=== PATIENT | male | born 1975 | race Caucasian/White ===

== ENCOUNTER 2024-10-22 22:40 | Observation (INO) | payer OTHER, SELFPAY ==
[2024-10-22] VITALS (19 sets, daily range): BP systolic 170–233; BP diastolic 93–193
[2024-10-22 16:20] LABS: % Basophils 0.9 % (0-2); % Eosinophils 8.9 % (0-6); % Immature Granulocytes 0.4 % (0-0.5); % Lymphocytes 32.1 % (20.5-51.1); % Monocytes 8.3 % (1.7-9.3); % Neutrophils 49.4 % (42.2-75.2); Absolute Basophils 0.1 10^3/uL (0-0.2); Absolute Eosinophils 0.6 10^3/uL (0-0.7); Absolute Lymphocytes 2.2 10^3/uL (1.2-3.4); Absolute Monocytes 0.6 10^3/uL (0.1-0.6); Absolute Neutrophils 3.3 10^3/uL (1.4-6.5); Hematocrit 44.7 % (39.0-52.0); Hemoglobin 15.8 g/dL (13.0-18.0); Mean Corp Hgb Conc. 35.3 g/dL (33.0-37.0); Mean Corpuscular Hgb 31.9 pg (27.0-31.0); Mean Corpuscular Volume 90.3 fL (80.0-94.0); Mean Platelet Volume 9.7 fL (7.4-10.4); Nucleated Red Blood Cells % 0 % (-); Platelet Count 309 10^3/uL (130-400); Red Blood Cell Count 4.95 10^6/uL (4.70-6.10); Red Cell Dist. Width 12.6 % (11.5-14.5); White Blood Cell Count 6.8 10^3/uL (4.8-10.8)
[2024-10-22 16:34] LABS: ALT (SGPT) 88 U/L (0-50); AST (SGOT) 54 U/L (17-59); Albumin 4.4 g/dl (3.5-5.0); Alkaline Phosphatase 50 U/L (38-126); Blood Urea Nitrogen 17 mg/dl (9-20); Calcium 9.9 mg/dl (8.4-10.2); Carbon Dioxide 23 mmol/L (22-30); Chloride 111 mmol/L (98-107); Glucose 123 mg/dl (70-99); Potassium 4.1 mmol/L (3.5-5.1); Sodium 141 mmol/L (135-145); Total Bilirubin 0.5 mg/dl (0.2-1.3); Total Protein 7.9 g/dl (6.3-8.2); eGFR > 60.00
--- NOTE | 2024-10-22 17:42 | ED.GENMED ---
History of Present Illness
General
Chief Complaint: Blood Pressure Problem
Time Seen by Provider: 10/22/24 17:42
History of Present Illness
History of Present Illness:
TIME OF INITIAL ENCOUNTER: 5:45 PM
HPI: Patient went to urgent care for URI type symptoms was found to be hypertensive. Of note, the patient states he has not taken any blood pressure medications for the past couple of years. He he knows he was on amlodipine and thinks he was also
on lisinopril or losartan. He stopped taking the medication as he started become noncompliant and did not think it really made much of a difference. He started having URI type of symptoms recently. He did take something to contain pseudoephedrine
a few days ago but none since then. He had a headache but does not have any headache anymore. He went to urgent care again who told him to come here due to severe hypertension. He no longer takes any antihypertensives. He has no chest pain or
shortness of breath.
EXAM:
GENERAL: Well appearing in no distress, markedly hypertensive, I manually took blood pressure and it was 232/130
HEENT: Moist oral mucosa
CARDIOVASCULAR: No murmurs, normal heart rate, regular rhythm, No chest wall tenderness
PULMONARY: No respiratory distress, breath sounds are clear and equal
ABDOMEN: Soft with no peritoneal signs, no tenderness
NEUROLOGIC: Excellent strength all extremities, no coordination deficits
PSYCHIATRIC: Appropriate mental status, normal insight and judgement
EXTREMITIES: Nontender, no edema, moves all extremities equally
SKIN: No rash, no lesions
NUMBER AND COMPLEXITY OF PROBLEMS ADDRESSED AT THE ENCOUNTER
� Chronic conditions affecting care: High blood pressure, high cholesterol, diverticular disease
� Acute Exacerbation and/or Progression of Chronic Illness: This is an acute problem
� Differential Diagnosis includes: Medication noncompliance, hypertensive urgency,
AMOUNT AND/OR COMPLEXITY OF DATA TO BE REVIEWED AND ANALYZED
� I performed an independent evaluation of and my interpretation is:
EKG: Sinus 65, normal axis, no acute ST abnormality
CT:
X-rays:
Laboratory Studies: White count and hemoglobin normal, chemistries relatively unremarkable. Normal renal function.
Other:
� Review of other/old records: I reviewed prior blood pressure readings. In 2019 the patient had a blood pressure reading of 183/116, in 2017 it was 158/115. He has always been hypertensive.
� Clinical information was obtained by an independent historian: I spoke to at bedside
� Prescriptions/Medications Considered but not given:
� Further testing considered but not performed:
RISK OF COMPLICATIONS AND/OR MORBIDITY OR MORTALITY OF PATIENT MANAGEMENT
� Social determinants of health affecting care: Lives at home
� Discussion with other providers: I have asked Dr. Telles for admission as patient's blood pressure remains relatively poorly controlled in the ER despite several oral antihypertensives and IV antihypertensives.
� Escalation of care including admission/observation vs risk of discharge considered: The patient is found to be markedly hypertensive and no longer takes the antihypertensives that he used to take. Although he had a headache a
few days ago, he no longer has a headache. He came here primarily at the recommendation of urgent care as he was found to be hypertensive there. Systolic manually is 232. Will start IV and give hydralazine.
ANY OTHER UPDATES: I strongly recommend patient resume antihypertensives. Considered admission to the hospital however the patient currently has virtually no symptoms. Recommend no further pseudoephedrine.
We initially gave losartan 50 mg orally along with the hydralazine 10 mg IV. Of note after the hydralazine was given, patient had a general unwell feeling but blood pressures remained elevated. I also added amlodipine as he was on both amlodipine
and an ASHA in the past. BP then went back up to the 230s and will give a dose of labetalol. However throughout the stay in the Emergency Department, the patient has been asymptomatic.
Past History
Past History
ED Past Medical History: GERD, HTN and Hypercholesterolemia
ED Past Surgical History: Cholecystectomy
Social History
Tobacco: Non-smoker
Alcohol: None
Personal:
Living: with family
Employment: Employed
Family History
Family History: Other (Noncontributory)
Phy Exam
Physical Exam
Physical Exam:
See HPI
Course
Orders/Labs/Results
Orders:
Orders
10/22/24 15:57
EKG [Electrocardiogram (*1)] Urgent
Reason for Study: Hypertension, Benign
10/22/24 15:58
EKG- Treatment ONCE
10/22/24 16:14
CMP [Comprehensive Metabolic Panel] Urgent
Complete Blood Count/With Diff Urgent
10/22/24 18:06
HydrALAZINE [Apresoline] 10 mg IV NOW STA
Losartan [Cozaar] 50 mg PO NOW STA
10/22/24 19:07
Amlodipine [Norvasc] 5 mg PO NOW STA
10/22/24 20:43
Labetalol HCl [Trandate] 10 mg IV NOW STA
Abnormal Lab Results
10/22/24
16:14
MCH 31.9 H pg
(27.0-31.0)
Eosinophils % 8.9 H %
(0-6)
Chloride 111 H mmol/L
(98-107)
Glucose 123 H mg/dl
(70-99)
ALT 88 H U/L
(0-50)
10/22/24 16:14
10/22/24 16:14
Vital Signs
Blood pressure: 232/130 (manual)
Initial and Last Documented VS:
Initial Vital Signs
Temp Resp BP Pulse Ox
37.1 C 18 223/137 97
10/22/24 15:53 10/22/24 15:53 10/22/24 15:53 10/22/24 15:53
Last Documented Vital Signs
Temp Pulse Resp BP Pulse Ox
37.1 C 77 13 199/127 96
10/22/24 15:53 10/22/24 21:30 10/22/24 21:30 10/22/24 21:20 10/22/24 20:45
*Critical Care Note
Total Time (30-74mins, 75-104mins- exclusive of procedures): Not Applicable
ED Attending Note
-
Portions of this chart may have been created with voice recognition software.� Occasional wrong word or��sound alike� substitutions may have occurred due to the inherent limitations of voice recognition software.
Discharge Plan
Departure
Prescriptions:
No Action
lisinopril 20 MG tablet
20 mg PO DAILY
amlodipine 5 MG tablet
5 mg PO DAILY
Referrals:
Rakesh Schumacher DO [Family Provider, Family Practice]
Interventions
Interventions:
*Risk Screen - Suicide Last Done: 10/22/24 15:53
*General Assessment Last Done: 10/22/24 15:53
*Neglect/Abuse Screening Last Done: 10/22/24 15:53
*ED- Fall Risk Assessment Last Done: 10/22/24 18:45
*ED COVID-19 Vaccine History Last Done: 10/22/24 15:53
ED- Cardiac Assessment Last Done: 10/22/24 18:20
ED- Neurological Assessment Last Done: 10/22/24 18:20
ED- Pulmonary Assessment Last Done: 10/22/24 18:20
Discharge Date and Time
Print Language: IRISH
[2024-10-22] MEDS: COZAAR 50 MG PO (18:19)
[2024-10-22] MEDS: APRESOLINE 10 MG IV (18:25)
[2024-10-22] MEDS: NORVASC 5 MG PO (19:12)
[2024-10-22] MEDS: TRANDATE 10 MG IV (20:48)
--- NOTE | 2024-10-22 22:19 | HPS.HSE ---
Family Physician
-
Family Physician: Rakesh Schumacher
Chief Complaint
-
No uncontrolled hypertension
History of Present Illness
This is a 49-year-old male who denies any significant past medical history although has prior history of hypertension for which he was previously prescribed antihypertensive which he is no longer taking at this point presents to the emergency
department from urgent care where he was measured to have markedly elevated blood pressure.
Patient reported that he went to urgent care for about a 1 week history of upper respiratory symptoms including nasal and chest congestion. He had a relative/household member was diagnosed with pneumonia but patient had no pneumonia. He was
afebrile. He did have initial blood pressure that was over 200 systolic.
Patient reported that his last check Clinic was 1 week ago and had a blood pressure of 138 systolic at that time. Reports that he has a blood pressure cuff at home but has erratic measurements there. Has history of migraines but denies any new
type of headache. Denies any neck pain. Denies back pain.
Patient says he has not taken blood pressure medications for at least 1 year because his blood pressures has been in the 130s to 140s over 80s systolic. In the past he states that blood pressure medications has not had significant effect on his
blood pressure. He reports a possibility of a history of sleep apnea but he had a prior test over 20 years ago where he did not have enough events to meet criteria. Denies any prior cardiac history. He denies any prior history of diabetes.
In the Emergency Department here today he is currently hypertensive to 199/120 with a pulse rate of 79 and satting 98% on room air. ECG normal sinus rhythm manage of [address] or T wave changes. No LVH. Chest x-ray from urgent care was clear.
Electrolytes unremarkable. Creatinine 1.2. CBC completely within normal limit.
Patient received losartan Norvasc and IV labetalol as well as IV hydralazine in the emergency department with persistently elevated blood pressure of over 200.
Medical History
Past Medical History
Past Medical History: Reports HTN
Past Surgical History: Reports Cholecystectomy
Social History
Tobacco: Non-smoker
Alcohol: Daily (2 bottles of beer per day)
Drug: None
Personal:
Living: With Family
Employment: Employed
Family History
Family History: Hypertension
Allergies / Home Medications
Allergies reflects when Allergies were last updated in [facility].
Home Medications with original date entered in [facility]
Allergy/Medication List:
Allergies
Allergy/AdvReac Type Severity Reaction Status Date / Time
No Known Allergies Allergy Verified 10/22/24 15:52
Home Medications
amlodipine 5 mg tablet 5 mg PO DAILY 02/23/17
lisinopril 20 mg tablet 20 mg PO DAILY 02/23/17
Review of Systems
-
Constitutional: Reports No Symptoms
EENT: Reports No Symptoms
Respiratory: Reports No Symptoms
Cardiac: Reports No Symptoms
Abdomen/GI: Reports No Symptoms
: Reports No Symptoms
Musculoskeletal: Reports No Symptoms
Skin: Reports No Symptoms
Neurological: Reports No Symptoms
Endocrine: Reports No Symptoms
Hematologic/Lymphatic: Reports No Symptoms
Psych: Reports No Symptoms
Physical Exam
Vital Signs
Vital Signs
Temp Pulse Resp BP Pulse Ox
98.8 F 79 19 199/127 96
10/22/24 15:53 10/22/24 21:45 10/22/24 21:45 10/22/24 21:20 10/22/24 20:45
Physical Exam
General: Well Developed, Well Nourished and No Apparent Distress
HEENT: NormoCephalic, Moist mucous membranes and Atraumatic
Respiratory: Clear
Cardiac: S1/S2 and Regular Rhythm; No Murmur or Rub
GI: Soft, Non Tender, Non Distended and Normal Bowel Sounds; No Organomegaly
Rectal: Deferred by Provider
Musculoskeletal: No Clubbing, No Cyanosis and No Edema
Skin: No Rash
Neuro: Nonfocal/grossly intact
Laboratory Results
-
10/22/24 16:14
10/22/24 16:14
Laboratory Results
Total Bilirubin 0.5 mg/dl (0.2-1.3) 10/22/24 16:14
AST 54 U/L (17-59) 10/22/24 16:14
ALT 88 U/L (0-50) H 10/22/24 16:14
Alkaline Phosphatase 50 U/L (38-126) 10/22/24 16:14
Data Reviewed
-
Diagnostic Radiology: Report Reviewed by me
Medical Tests (Nuc Med, Echo, EKG etc): Image Personally Visualized and interpreted
Lab Data: Labs Reviewed by me
Old Records: Reviewed
Impression/Plan
-
IMPRESSION:
49-year-old who presents to the emergency department after being incidentally found to have elevated blood pressure at urgent care clinic today where he is being evaluated for upper respiratory symptoms. Patient reported that over the last 1 week
he has been taking TheraFlu Claritin but otherwise no other medications. He reports history of hypertension for which he was previously on amlodipine and lisinopril but he has discontinued his medications for a year ago due to normal blood pressure
measurements at that time and no changes while he is off all of this medications. He has no acute symptoms. His labs do not show any sign consistent with secondary hypertension at this time.
PLAN:
1. Uncontrolled hypertension -likely chronic although patient reports normal blood pressure in clinic 1 week ago. No LVH, no signs of secondary hypertension on lab work. Cannot rule out ALEX as etiology. ?pheo but unlikley given normal pulse
rates.
- admit to telemetry
- continue losartan and amlodipine
- add hctz
- check u/a
- prn IV hydralazine / oral clonidine
- will hold off on further titration for now
- encouraged low salt diet and weight loss
- check lipid panel in am
DVT PPX - SCDs
Code status - Full Code
[2024-10-22] MEDS: CATAPRES 0.1 MG PO (22:57)
[2024-10-23 00:08] VITALS: BP 180/125; BMI 41.0
[2024-10-23 01:37] LABS: Urine Albumin Negative (Neg - Trace); Urine Bilirubin Negative (Negative); Urine Character Clear (Clear); Urine Color Yellow; Urine Glucose Negative (Negative); Urine Ketone Negative (Negative); Urine Leukocyte Negative (Negative); Urine Nitrite Negative (Negative); Urine Occult Blood Negative (Negative); Urine Specific Gravity 1.015 (<1.030); Urine Urobilinogen Negative (Neg - 1+); Urine pH 6.5 (5.0-9.0)
[2024-10-23 03:30] VITALS: BP 157/112
--- NOTE | 2024-10-23 06:23 | PTCARENOTE ---
Patient arrived on unit @2353 via stretcher from ED. Patient AAOX3, ambulate from stretcher to bed, denies any pain or discomfort. Skin assessment completed, oriented to unit, call villa within reach.
[2024-10-23 07:27] VITALS: BP 154/90
--- NOTE | 2024-10-23 08:39 | W.PN.HOSP.TC ---
Addendum entered and electronically signed by Luis Estes MD 10/23/24 22:08:
Attending Addendum-
I saw and evaluated the patient. I reviewed the resident�s note and agree with findings and plan as documented in the resident�s note. Sub: Feels great. Had mild GROSSMAN this am but resolved. Wants to go home. Full 12 point ROS reviewed and negative
except as documented Exam: Vitals reviewed in chart GEN NAD heart RRR lungs clear abd soft LE no edema
Plan:
#Hypertensive Urgency
- continue losartan and amlodipine (stopped taking apparently advised per PCP)
- increase hctz
- prn IV hydralazine
- encouraged low salt diet and weight loss
- check lipid panel in am
- f/u as OP advised weight loss exercise
- close f/u PCP
DVT PPX - SCDs
Code status - Full Code
Time spent coordinating care, DC planning, review of DC plan of care with resident, transition of care, review of records, med rec/scripts sent electronically, consults, notes, d/w consultants, nursing, family, and CM� 31 mins
Original Note:
Today's Communication/Plan
-
Discharge home
Assessment / Plan
Assessment / Plan
Assessment
49-year- old male with past medical history of hypertension admitted for the management of hypertensive urgency.
Plan
#Hypertensive urgency
Patient has a history of hypertension, stopped taking his home meds 2 years ago�lisinopril, amlodipine
Elevated BP reading likely due to medication noncompliance.
Had recent URI symptoms for which he went to urgent care, noted to have elevated blood pressure readings up to 200 SBP
In the ER, he received losartan, IV hydralazine, amlodipine, labetalol and was admitted for further management
EKG�NSR
Labs unremarkable, no signs of endorgan damage.
No indication for workup for secondary causes of hypertension.
Currently he is on losartan�50 mg, hydrochlorothiazide�12.5 mg, amlodipine 5 mg
Blood pressure�154/90
Stable to be discharged home, hydrochlorothiazide increased to 25 mg at discharge
#DVT prophylaxis�SCDs
#Full code
Anticipated Discharge: Today
Subjective/Interval History
-
Date of Service: October 23, 2024
Patient does not have any acute overnight issues
Objective Data
-
Vital Signs:
Vital Signs
Temp Pulse Resp BP Pulse Ox
98.3 F 73 16 154/90 94
10/23/24 07:27 10/23/24 07:27 10/23/24 07:27 10/23/24 07:27 10/23/24 07:27
Physical Exam
-
General: Well Developed and Well Nourished
HEENT: Normocephalic and Atraumatic
Respiratory: Clear to Auscultation
Cardiac: Regular Rhythm and S1/S2
GI: Soft, Nontender, Nondistended and Normal Bowel Sounds
Skin: Warm and Dry
Neuro: Awake, Alert, Oriented and AO x 3
Psych: Calm
[2024-10-23] MEDS: ORETIC 12.5 MG PO (09:02)
[2024-10-23] MEDS: TYLENOL 650 MG PO ×2 (09:02→15:38)
[2024-10-23] MEDS: COZAAR 50 MG PO (09:02)
[2024-10-23] MEDS: NORVASC 5 MG PO (09:02)
[2024-10-23 10:56] VITALS: BP 156/109
[2024-10-23 15:23] VITALS: BP 133/92
--- NOTE | 2024-10-23 16:52 | CM ---
Alert awake oriented patient who lives with his Zabrina who lives in a 1 story home with 5 step to enter. He is independent in driving and in all activities of daily living.He was offered VN he declined need.Observation letter given expained
and letter signed on chart.
No VN hx / No SNF history
Pharmacy [facility]
PCP DR Schumacher
PLAN Home Declined VN
--- NOTE | 2024-10-24 16:15 | W.DCSUMMARY ---
Addendum entered and electronically signed by Luis Estes MD 10/25/24 15:53:
Read, reviewed, and agree. See same day progress note for additional details.
Cody Estes MD
Original Note:
Documented by User: Ariadne Can MD, Resident 10/24/24 16:29
Discharge Summary
Discharge Data
Date of Admission: 10/22/24
Date of Discharge: 10/23/24
-
Pending Results: No
Hospital Course
Discharging Physician : Dr. Estes, .
Disposition : Home
Principal Discharge diagnosis : Hypertensive urgency
Hospital Course : 49-year-old male with past medical history of hypertension presented to the ER with elevated blood pressure readings. Patient has a history of hypertension, stopped taking his home meds 2 years ago�lisinopril, amlodipine. Had
recent URI symptoms for which he went to urgent care, noted to have elevated blood pressure readings up to 200 SBP.
In the ER, BP�230/135, EKG�NSR. Labs unremarkable, no signs of end organ damage. He received losartan, IV hydralazine, amlodipine, labetalol in ER and was admitted for further management
He was started on losartan�50 mg, hydrochlorothiazide�12.5 mg, amlodipine 5 mg. His blood pressure trended down to 150s/90s. During the hospital stay patient was not symptomatic. He is hemodynamically stable to be discharged home. Discharge
medications�losartan�50 mg, hydrochlorothiazide increased to 25 mg , amlodipine 5 mg.
Discharge Plan
-
Patient Disposition: Home (Routine Discharge)
Discharge Diagnosis/Procedures: Hypertensive urgency
Condition: Good
Diet: Low Sodium
Activity: No restrictions
Driving Restrictions: As prior to admission
Bathing Restrictions: None
Referrals:
Rakesh Schumacher, DO [Family Provider, Family Practice] - in less than 1 week
Prescriptions:
New
losartan 50 mg Tablet
50 mg PO DAILY Qty: 30 0RF
amlodipine 5 mg Tablet
5 mg PO DAILY Qty: 30 0RF
hydrochlorothiazide 25 mg tablet
25 mg PO DAILY Qty: 30 0RF
Discontinued
lisinopril 20 MG tablet
20 mg PO DAILY
amlodipine 5 MG tablet
5 mg PO DAILY
Discharge Orders:
Discharge Patient (As Directed); Ordered 10/23/24
Ordered By: Ariadne Can
Discharge Date and Time
Discharge Date/Time: 10/23/24 17:13
Print Language: ESTONIAN

Documented by User: Luis Estes MD 10/25/24 15:53
Discharge Summary
Discharge Data
Date of Admission: 10/22/24
Date of Discharge: 10/25/24
Discharge Plan
-
Patient Disposition: Home (Routine Discharge)
Discharge Diagnosis/Procedures: Hypertensive urgency
Condition: Good
Diet: Low Sodium
Activity: No restrictions
Driving Restrictions: As prior to admission
Bathing Restrictions: None
Referrals:
Rakesh Schumacher DO [Family Provider, Family Practice] - in less than 1 week
Prescriptions:
New
losartan 50 mg Tablet
50 mg PO DAILY Qty: 30 0RF
amlodipine 5 mg Tablet
5 mg PO DAILY Qty: 30 0RF
hydrochlorothiazide 25 mg tablet
25 mg PO DAILY Qty: 30 0RF
Discontinued
lisinopril 20 MG tablet
20 mg PO DAILY
amlodipine 5 MG tablet
5 mg PO DAILY
Discharge Orders:
Discharge Patient (As Directed); Ordered 10/23/24
Ordered By: Ariadne Can
Discharge Date and Time
Discharge Date/Time: 10/23/24 17:13
Print Language: ESTONIAN
== END 2024-10-23 17:13 | disposition home or self-care (01) ==
LOC: 3 WEST ACU 22:40
PROVIDERS: Emergency Medicine; Student in an Organized Health Care Education/Training Program; ADMITTING PHYSICIAN Internal Medicine; ATTENDING PHYSICIAN Family Medicine; EMERGENCY PHYSICIAN Emergency Medicine; FAMILY PHYSICIAN Family Medicine
DX: I16.0 Hypertensive urgency (principal); I10 Essential (primary) hypertension
CPT/HCPCS: 80053; 81003; 85025; 93005; 96374; 96375; 99284; G0378

== ENCOUNTER 2024-10-26 14:08 | Emergency (ER) | payer OTHER, SELFPAY ==
[2024-10-26 14:12] VITALS: BP 156/114
[2024-10-26 14:15] VITALS: BP 163/119
[2024-10-26 14:32] LABS: % Basophils 1.2 % (0-2); % Eosinophils 8.6 % (0-6); % Immature Granulocytes 0.5 % (0-0.5); % Lymphocytes 33.7 % (20.5-51.1); % Monocytes 6.3 % (1.7-9.3); % Neutrophils 49.7 % (42.2-75.2); Absolute Basophils 0.1 10^3/uL (0-0.2); Absolute Eosinophils 0.6 10^3/uL (0-0.7); Absolute Lymphocytes 2.2 10^3/uL (1.2-3.4); Absolute Monocytes 0.4 10^3/uL (0.1-0.6); Absolute Neutrophils 3.3 10^3/uL (1.4-6.5); Hematocrit 45.9 % (39.0-52.0); Hemoglobin 16.7 g/dL (13.0-18.0); Mean Corp Hgb Conc. 36.4 g/dL (33.0-37.0); Mean Corpuscular Hgb 32.2 pg (27.0-31.0); Mean Corpuscular Volume 88.6 fL (80.0-94.0); Mean Platelet Volume 9.7 fL (7.4-10.4); Nucleated Red Blood Cells % 0 % (-); Platelet Count 328 10^3/uL (130-400); Red Blood Cell Count 5.18 10^6/uL (4.70-6.10); Red Cell Dist. Width 12.5 % (11.5-14.5); White Blood Cell Count 6.6 10^3/uL (4.8-10.8)
[2024-10-26 15:00] LABS: ALT (SGPT) 101 U/L (0-50); AST (SGOT) 54 U/L (17-59); Albumin 4.6 g/dl (3.5-5.0); Alkaline Phosphatase 51 U/L (38-126); Blood Urea Nitrogen 18 mg/dl (9-20); Calcium 10.4 mg/dl (8.4-10.2); Carbon Dioxide 22 mmol/L (22-30); Chloride 109 mmol/L (98-107); Glucose 127 mg/dl (70-99); Potassium 4.1 mmol/L (3.5-5.1); Sodium 140 mmol/L (135-145); Total Bilirubin 0.8 mg/dl (0.2-1.3); Total Protein 8.1 g/dl (6.3-8.2); eGFR > 60.00
[2024-10-26 16:04] VITALS: BMI 40.1
[2024-10-26 16:09] VITALS: BP 174/114
[2024-10-26 17:00] VITALS: BP 154/97
--- NOTE | 2024-10-26 17:12 | ED.GENMED ---
History of Present Illness
General
Chief Complaint: Blood Pressure Problem
Time Seen by Provider: 10/26/24 16:44
History of Present Illness
History of Present Illness:
Note:
CHIEF COMPLAINT(S)
Elevated blood pressure readings and symptoms of headache, brain fog, and altered sensation in the feet.
HISTORY OF PRESENT ILLNESS
The patient is a 50-year-old male with a recent hospital admission due to significantly elevated blood pressure readings. He has been experiencing elevated blood pressures consistently throughout the weekend, measuring around 160/110 mmHg. He
contacted his primary care provider and was advised to visit the emergency department. The patient reports experiencing a severe headache yesterday, which is atypical for him as he does not have a history of migraines. Additionally, he feels a
'pretty bad brain fog,' and his feet feel different, although he struggles to describe the sensation. These sensations are new as of yesterday. Upon examination, there is no numbness but altered sensation is noted in both feet. He was previously on
antihypertensive medications but had stopped them for a couple of years. He is currently on three antihypertensive medications since his recent hospitalization, which began four days ago. He denies chest pain or shortness of breath. The patient is
concerned about an upcoming flight on but feels well enough to travel as long as he continues his medications.
CHRONIC MEDICAL CONDITIONS SIGNIFICANTLY AFFECTING CARE
Hypertension
REVIEW OF SYSTEMS
- Cardiovascular: Elevated blood pressure noted over the past several days.
- Neurological: Reports of severe headache yesterday and current brain fog.
- Musculoskeletal: Altered sensation in feet with no cramping of the calves.
PHYSICAL EXAM
- General: Patient appears well, no acute distress noted.
- Cardiovascular: Heart rate regular with no murmurs.
- Respiratory: Lungs clear to auscultation.
- Neurological: Alert and oriented, cranial nerves intact, strength and sensation normal.
- Extremities: Strong pulses in feet, soft calves. No vascular abnormalities detected.
- Nursing notes reviewed and vital signs reviewed. Blood pressure noted to be 154/97 mmHg.
PLAN
- Advise the patient to continue current antihypertensive regimen as it has been only four days since initiation.
- Recommend increasing Losartan to 100 mg if blood pressure remains elevated after 7 to 10 days from hospital discharge.
- Follow-up with primary care physician as planned for reevaluation.
- Continue monitoring blood pressure at home, with checks advised 3-4 times a week.
DIFFERENTIAL DIAGNOSIS
The Differential Diagnosis includes, in no particular order and is not limited to:
1. Essential hypertension
2. Medication-induced side effects
3. Secondary hypertension (e.g., renal artery stenosis, pheochromocytoma)
4. Transient ischemic attack (consider in the presence of brain fog)
5. Peripheral neuropathy
6. Hypertensive crisis
7. Chronic kidney disease
8. Anxiety or stress-related disorders
9. Cerebrovascular accident
10. Hypoperfusion or vascular insufficiency
Disposition:
SUMMARY OF ENCOUNTER
The patient, a 50-year-old male with a history of hypertension, was seen for elevated blood pressure readings accompanied by symptoms of headache, brain fog, and altered sensation in the feet. After a visit to the emergency department, where no
signs or symptoms of end-organ injury were noted, the blood pressure management plan was reviewed. The patient had recently resumed antihypertensive medications four days prior to the visit.
PLAN
The patient is advised to continue with the current antihypertensive regimen. No adjustment to blood pressure medication is recommended at this time unless the blood pressure remains elevated for more than 10 days from the initiation of therapy.
MEDICATION RECONCILIATION
Patient is currently on three antihypertensive medications which were initiated during the recent hospitalization.
FOLLOW-UP INSTRUCTIONS
The patient should follow up with their primary care physician for reevaluation and continue to monitor blood pressure at home, checking values 3-4 times a week.
MEDICAL DECISION MAKING
The patients care involved assessing both acute and chronic hypertension concerns. Considerations included the absence of end-organ damage and the stability for outpatient management. The social determinant of health related to travel concerns was
addressed. The patient was informed of the requirement to seek further care if the elevation in blood pressure persists beyond the specified timeframe.
Past History
Past History
ED Past Medical History: GERD, HTN and Hypercholesterolemia
ED Past Surgical History: Cholecystectomy
Social History
Tobacco: Non-smoker
Alcohol: None
Personal:
Living: with family
Employment: Employed
Family History
Family History: Other (Noncontributory)
Phy Exam
Physical Exam
Physical Exam:
.
Course
Orders/Labs/Results
Orders:
Orders
10/26/24 14:16
Electrocardiogram (*1) Urgent
Reason for Study: Hypertension, Benign
EKG- Treatment ONCE
10/26/24 14:23
Complete Blood Count/With Diff Urgent
Comprehensive Metabolic Panel Urgent
Abnormal Lab Results
10/26/24
14:23
MCH 32.2 H pg
(27.0-31.0)
Eosinophils % 8.6 H %
(0-6)
Chloride 109 H mmol/L
(98-107)
Glucose 127 H mg/dl
(70-99)
Calcium 10.4 H mg/dl
(8.4-10.2)
ALT 101 H U/L
(0-50)
10/26/24 14:23
10/26/24 14:23
Vital Signs
Initial and Last Documented VS:
Initial Vital Signs
Temp Pulse Resp BP Pulse Ox
98.0 F 100 16 156/114 99
10/26/24 14:12 10/26/24 14:12 10/26/24 14:12 10/26/24 14:12 10/26/24 14:12
Last Documented Vital Signs
Temp Pulse Resp BP Pulse Ox
98.0 F 70 16 154/97 96
10/26/24 14:12 10/26/24 17:00 10/26/24 14:12 10/26/24 17:00 10/26/24 17:00
*Critical Care Note
Total Time (30-74mins, 75-104mins- exclusive of procedures): Not Applicable
ED Attending Note
-
Portions of this chart may have been created with voice recognition software.� Occasional wrong word or��sound alike� substitutions may have occurred due to the inherent limitations of voice recognition software.
Discharge Plan
Departure
Patient Disposition: Home (Routine Discharge)
Date of Disposition: 10/26/24
Time of Disposition: 17:13
Patient with high blood pressure during this ER visit?: No
Discharge Problem:
Hypertension
Instructions: High Blood Pressure (DC)
Prescriptions:
No Action
losartan 50 mg Tablet
50 mg PO DAILY Qty: 30 0RF
amlodipine 5 mg Tablet
5 mg PO DAILY Qty: 30 0RF
hydrochlorothiazide 25 mg tablet
25 mg PO DAILY Qty: 30 0RF
Activity Restrictions/Additional Instructions:
Increase your losartan to 100mg in 7-10 days if blood pressure readings remain elevated
Follow up with your primary doctor
Interventions
Interventions:
*Risk Screen - Suicide Last Done: 10/26/24 14:12
*General Assessment Last Done: 10/26/24 16:04
*Neglect/Abuse Screening Last Done: 10/26/24 14:12
*ED- Fall Risk Assessment Last Done: 10/26/24 16:04
*ED COVID-19 Vaccine History Last Done: 10/26/24 16:04
*Nursing Disposition Last Done: 10/26/24 17:24
ED- Cardiac Assessment Last Done: 10/26/24 16:04
ED- Neurological Assessment Last Done: 10/26/24 16:04
ED- Pulmonary Assessment Last Done: 10/26/24 16:04
Discharge Date and Time
Discharge Date/Time: 10/26/24 17:25
Print Language: YORUBA
== END 2024-10-26 17:25 | disposition home or self-care (01) ==
LOC: EMR 14:08
PROVIDERS: Student in an Organized Health Care Education/Training Program; EMERGENCY PHYSICIAN Emergency Medicine; FAMILY PHYSICIAN Family Medicine
DX: I10 Essential (primary) hypertension (principal)
CPT/HCPCS: 99284; 80053; 85025; 93005